=== PATIENT | male | born 1970 | race Caucasian/White ===

== ENCOUNTER 2020-05-10 10:25 | Emergency (ER) | payer OTHER ==
[2020-05-10] MEDS ORDERED: ACETAMINOPHEN 325 MG TABLET PO ONE (10:47)
--- NOTE | 2020-05-10 11:44 | RADIOLOGY REPORT (SQ) ---
EXAM DESCRIPTION: WRIST RIGHT 3 VIEWS IMAGES COMPLETED DATE/TIME: 05/10/2020 8:11 am REASON FOR STUDY: injury COMPARISON: None. NUMBER OF VIEWS: Three views. TECHNIQUE: AP, lateral, and oblique radiographic images acquired of the right wrist. LIMITATIONS: None. FINDINGS: MINERALIZATION: Normal. BONES: There appears to be postsurgical changes related to resection of the distal ulna with fixation plate and screws in the mid to distal ulnar shaft. Rounded circumscribed lucency in the distal radi us probably also due to prior postsurgical change. No acute fracture identified. No joint dislocati on. SOFT TISSUES: No soft tissue swelling. No foreign body. OTHER: No other significant finding. IMPRESSION: Chronic postoperative change as described. No acute radiographic abnormality identified . TECHNICAL DOCUMENTATION: JOB ID: [id number] [employer]- All Rights Reserved Reading location - IP/workstation name: [email or web address]
--- NOTE | 2020-05-10 11:44 | RADIOLOGY REPORT (SQ) ---
EXAM DESCRIPTION: ANKLE RIGHT COMPLETE IMAGES COMPLETED DATE/TIME: 05/10/2020 11:11 am REASON FOR STUDY: injury COMPARISON: None. NUMBER OF VIEWS: Three views. TECHNIQUE: AP, lateral, and oblique radiographic images acquired of the right ankle. LIMITATIONS: None. FINDINGS: MINERALIZATION: Normal. BONES: Abnormal Boehler's angle without identified fracture line. JOINTS: Intact. SOFT TISSUES: No soft tissue swelling. No foreign body. OTHER: No other significant finding. IMPRESSION: Abnormal Boehler's angle. Cannot exclude occult calcaneal fracture. Consider follow-up CT. TECHNICAL DOCUMENTATION: JOB ID: [id number] 2010 [employer]- All Rights Reserved Reading location - IP/workstation name: [email or web address]
--- NOTE | 2020-05-10 11:45 | RADIOLOGY REPORT (SQ) ---
EXAM DESCRIPTION: SHOULDER LEFT 2 OR MORE VIEWS IMAGES COMPLETED DATE/TIME: 05/10/2020 11:12 am REASON FOR STUDY: injury COMPARISON: None. NUMBER OF VIEWS: Three views. TECHNIQUE: Internal rotation, external rotation, and Y view images acquired of the left shoulder. LIMITATIONS: None. FINDINGS: MINERALIZATION: Normal. BONES: No acute fracture. No worrisome bone lesions. JOINTS: No dislocation. VISUALIZED LUNGS AND RIBS: No pneumothorax. No rib fracture. SOFT TISSUES: No radiopaque foreign body. OTHER: No other significant finding. IMPRESSION: NEGATIVE STUDY OF THE LEFT SHOULDER. NO RADIOGRAPHIC EVIDENCE OF ACUTE INJURY. TECHNICAL DOCUMENTATION: JOB ID: [id number] 2010 [employer]- All Rights Reserved Reading location - IP/workstation name: [email or web address]
--- NOTE | 2020-05-10 13:28 | RADIOLOGY REPORT (SQ) ---
EXAM DESCRIPTION: CT RT LOWER EXTREMITY WITHOUT IMAGES COMPLETED DATE/TIME: 05/10/2020 1:03 pm REASON FOR STUDY: Questionable calcaneal fracture on x-ray COMPARISON: Right ankle radiographs earlier same day EXAM PARAMETERS: TECHNIQUE:Axial imaging performed through the right ankle with reformatted coronal and sagittal imaging windowed for bone and soft tissues. Images saved to PACS. 3D IMAGING: Were 3D images as MIP, SSD, or volume rendering performed at the work station? No. All CT scanners at this facility use dose modulation, iterative reconstruction, and/or weight based d osing when appropriate to reduce radiation dose to as low as reasonably achievable (ALARA). [facility]: Dose Right [facility]: [employer] [facility]: Dose Right [facility]: Teradose 4D [facility]: Smart [employer] RADIATION DOSE: CT Rad equipment meets quality standard of care and radiation dose reduction techniqu es were employed. CTDIvol: 4.1 mGy. DLP: 104 mGy-cm. mGy. LIMITATIONS: None. FINDINGS: SOFT TISSUES: No obvious swelling or foreign body. BONES: No acute fracture. No dislocation. Chronic fragmentation of the lateral aspect of the talus. MINERALIZATION: Normal. OTHER: Small plantar and Achilles calcaneal enthesophytes are present. No other significant finding. IMPRESSION: No acute calcaneal fracture. TECHNICAL DOCUMENTATION: JOB ID: [id number] [facility] [id number]: Final reports with documentation of one or more dose reduction techniques (e.g., Automate d exposure control, adjustment of the mA and/or kV according to patient size, use of iterative recons truction technique) 2010 [employer]- All Rights Reserved Reading location - IP/workstation name: [email or web address]
[2020-05-10 13:57] VITALS: BP 133/84
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
== END 2020-05-10 13:50 | disposition home or self-care (01) ==
LOC: ER 10:25
DX: S99.911A Unspecified injury of right ankle, initial encounter (principal); S49.92XA Unspecified injury of left shoulder and upper arm, initial encounter; S69.91XA Unspecified injury of right wrist, hand and finger(s), initial encounter; R51.9 Headache, unspecified; M54.2 Cervicalgia; M25.532 Pain in left wrist; R07.81 Pleurodynia; V49.40XA Driver injured in collision with unspecified motor vehicles in traffic accident, initial encounter; M77.51 Other enthesopathy of right foot and ankle; I10 Essential (primary) hypertension; J44.9 Chronic obstructive pulmonary disease, unspecified; Z98.890 Other specified postprocedural states
CPT/HCPCS: 99284